=== PATIENT | female | born 1990 | race Caucasian/White ===

== ENCOUNTER 2018-01-13 07:03 | Day surgery (SDC) | payer OTHER ==
[2018-01-13] MEDS ORDERED: PROPOFOL 40 ML (08:19)
== END 2018-01-13 12:56 | disposition home or self-care (01) ==
LOC: GIL 07:03
DX: R19.5 Other fecal abnormalities (principal); K64.8 Other hemorrhoids; K64.4 Residual hemorrhoidal skin tags; K29.70 Gastritis, unspecified, without bleeding
CPT/HCPCS: 43239; 84703; 88305; 88312

== ENCOUNTER 2018-08-10 05:48 | Day surgery (SDC) | payer OTHER ==
[2018-08-10] MEDS ORDERED: FENTAnyl 50 MCG/ML VIAL (08:13)
[2018-08-10] MEDS ORDERED: MIDAZOLAM 1 MG/ML 2 ML INJ ×2 (08:13→08:14)
== END 2018-08-10 10:52 | disposition home or self-care (01) ==
LOC: GIL 05:48
DX: K29.60 Other gastritis without bleeding (principal)
CPT/HCPCS: 43239; 88305